=== PATIENT | male | born 1935 | race Hispanic/Latino ===

== ENCOUNTER 2019-08-23 08:45 | Day surgery (SDC) | payer OTHER ==
[2019-08-23] VITALS (18 sets, daily range): BP systolic 88–140; BP diastolic 53–67
[~2019-08-23] VITALS: Ht 172.7 cm; Wt 55.3 kg
[2019-08-23 09:39] LABS: BASOPHILS % (AUTO) 0.7 % (0.0-5.0); HEMATOCRIT 37.5 % (42-54); LYMPHOCYTES % (AUTO) 14.3 % (21.0-51.0); MEAN CORPUSCULAR HEMOGLOBIN 30.2 pg (27.0-33.0); MEAN CORPUSCULAR HGB CONC 33.3 g/dL (32.0-36.0); MEAN CORPUSCULAR VOLUME 90.6 fL (79-99); MONOCYTES % (AUTO) 10.2 % (3.0-13.0); NEUTROPHILS % (AUTO) 73.7 % (40.0-77.0); PLATELET COUNT (AUTO) 178 K/uL (130-400); RED BLOOD CELL COUNT(AUTO) 4.14 MIL/uL (4.50-6.20); RED CELL DISTRIBUTION WIDTH 12.4 % (11.0-15.5); WHITE BLOOD COUNT (AUTO) 6.8 K/uL (4.8-10.8)
[2019-08-23 09:53] LABS: CREATININE 0.8 mg/dL (0.5-1.5)
[2019-08-23] MEDS ORDERED: DORZ10DR9 OU (10:16)
[2019-08-23] MEDS ORDERED: AMLO5TAB9 PO (10:16)
[2019-08-23] MEDS ORDERED: LACTATED RINGERS 1000ML 1,000 ML IV ONE (12:05)
[2019-08-23] MEDS: CEFAZOLIN SODIUM 1 GM VIAL ONE ×2 (12:12→16:45)
--- NOTE | 2019-08-23 12:21 | NUR ---
fx right ankle fx posterior splint in place Addendum: 08/23/19 at 1221 by SARAH JOYCE RN Amended: Links added.
[2019-08-23] MEDS ORDERED: LIDOCAINE PF 2% 5ML ABBOJECT ONE (16:32)
[2019-08-23] MEDS ORDERED: FENTANYL CITRATE PF 50 MCG/1 ML 2ML VIAL ONE (16:32)
[2019-08-23] MEDS ORDERED: PROPOFOL 10 MG/ML 20ML VIAL IV ONE (16:32)
[2019-08-23] MEDS ORDERED: ROPIVACAINE 0.5% 5MG/ML 30ML IJ ONE (16:38)
[2019-08-23] MEDS ORDERED: EPHEDRINE SULFATE 50 MG/ML AMPULE ONE (17:04)
[2019-08-23] MEDS ORDERED: GLYCOPYRROLATE 1 MG/5 ML SYRINGE ONE (17:08)
== END 2019-08-23 17:45 | disposition home or self-care (01) ==
LOC: DAH 08:45
PROVIDERS: ATTEND Orthopaedic Surgery
DX: S82.841A Displaced bimalleolar fracture of right lower leg, initial encounter for closed fracture (principal); S99.811A Other specified injuries of right ankle, initial encounter; I10 Essential (primary) hypertension; H40.9 Unspecified glaucoma; F17.210 Nicotine dependence, cigarettes, uncomplicated; X58.XXXA Exposure to other specified factors, initial encounter; Y93.89 Activity, other specified; Y92.89 Other specified places as the place of occurrence of the external cause; Y99.8 Other external cause status; Z72.89 Other problems related to lifestyle; Z79.899 Other long term (current) drug therapy; Z98.49 Cataract extraction status, unspecified eye
CPT/HCPCS: 27814; 27829; 36415; 64445; 71045; 73610; 76942; 80048; 85025; 93005; A4215; A4221; A4222; A4223; A4510; A4600; A4649 ×3; A4663; A4930 ×3; A6223; C1713 ×5; C1776; J0690; J2001; J2704; J2795; J3010; J3490 ×2; J7120